=== PATIENT | female | born 1995 | race Caucasian/White ===

== ENCOUNTER 2023-12-15 02:07 | Outpatient (CLI) | payer OTHER, SELFPAY ==
[2023-12-15 16:52] LABS: Panorama Kit Sent via Fed Ex
[2023-12-15 16:58] LABS: Abs Immature Grans 0.03 10^3/uL (0.0-0.06); Absolute Basophil Count 0.03 10^3/uL (0.0-0.2); Absolute Eosinophil Count 0.05 10^3/uL (0.0-0.7); Absolute Lymphocyte Count 2.54 10^3/uL (1.2-3.4); Absolute Monocyte Count 0.41 10^3/uL (0.1-0.8); Absolute Neutrophil Count 6.07 10^3/uL (1.2-6.7); Basophils % 0.3 %; Eosinophils % 0.5 %; HCT 37.5 % (36.0-46.0); HGB 12.7 g/dL (11.2-15.7); Immature Grans % 0.3 %; Lymphocytes % 27.8 %; MCH 32.4 pg (27.0-33.0); MCHC 33.9 % (32.0-36.0); MCV 96 fL (80-95); MPV 8.8 fL (8.0-11.0); Monocytes % 4.5 %; Neutrophils % 66.6 %; Platelet Count 231 10^3/uL (130-400); RBC 3.92 10^6/uL (3.93-5.22); RDW 12.2 % (11.7-14.6); RDW-SD 43.1 fL; WBC 9.13 10^3/uL (4.4-10.8)
[2023-12-16 18:57] LABS: Hepatitis B Surface Ag Negative (Negative)
[2023-12-16 19:25] LABS: Hepatitis C Ab w Rflx HCV PCR Negative (Negative)
[2023-12-16 19:29] LABS: HIV-1/2 Ag & Ab Screen Negative (Negative)
[2023-12-17 11:24] LABS: Varicella IgG Antibody Positive (See Note)
[2023-12-17 11:33] LABS: Rubella IgG Ab (UVM) Positive (See Note)
[2023-12-18 15:17] LABS: Syphilis IgG w/Reflex Nonreactive (Nonreactive)
[2023-12-19 16:20] LABS: Specimen WB Whole Blood
[2023-12-25 13:18] LABS: Result Summary NEGATIVE; Specimen WB Whole Blood
== END 2023-12-15 02:08 | disposition home or self-care (01) ==
LOC: LBO 02:07
PROVIDERS: Visit Provider Advanced Practice Midwife
DX: Z34.91 Encounter for supervision of normal pregnancy, unspecified, first trimester (principal); E84.9 Cystic fibrosis, unspecified
CPT/HCPCS: 36415; 81220; 81222; 81329; 86787; 86803; 86850; 86900; 86901; 87340; 87389; 85025; 86762; 86780; 87086

== ENCOUNTER 2023-12-15 18:13 | Outpatient (REF) | payer SELFPAY ==
--- NOTE | 2023-12-15 16:00 | PAPFT_PTH ---
PATIENT: Janice Fuller LOC: [facility] U#:[id number] AGE/SX: 28/F ROOM: RE12/15/[address]: Latonia Mcgee : 1995 BED: DIS: 12/15/2023 SPEC #: [id number] RECD: 12/15/23 18:34 STATUS: SATISH REQ #: [id number] PASHA: 12/15/23 16:[address]: Latonia Mcgee DEPT: [facility] Cytology RECD BY: Lynn Thomas ENTERED: 12/15/23 18:35 SP TYPE: PAPFT OTHR DR: Unknown,Unknown Tissues: 1 - CX/ENDOCX FOR PAP SMEARS Procedures: PAP THIN PREP/UVM Screening Comments: [id number] (CHLAMYDIA/GC)
[2024-01-05 13:30] LABS: Chlamydia Result Negative (Negative); GC Result Negative (Negative)
== END 2023-12-15 18:14 | disposition home or self-care (01) ==
LOC: LBN 18:13
PROVIDERS: Visit Provider Advanced Practice Midwife
DX: Z11.3 Encounter for screening for infections with a predominantly sexual mode of transmission (principal)
CPT/HCPCS: 87491; 87591; 88142; 87480; 87510; 87660

== ENCOUNTER 2024-01-07 11:48 | Outpatient (REF) | payer OTHER, SELFPAY | END 2024-01-07 11:49 | disposition home or self-care (01) | LOC: LBN 11:48 | PROVIDERS: Visit Provider Advanced Practice Midwife | DX: N89.8 Other specified noninflammatory disorders of vagina (principal) | CPT/HCPCS: 87480; 87510; 87660 ==

== ENCOUNTER 2024-04-14 03:17 | Outpatient (CLI) | payer OTHER, MEDICAID, SELFPAY ==
[2024-04-14 14:47] LABS: HCT 35.2 % (36.0-46.0); HGB 11.9 g/dL (11.2-15.7); MCH 31.7 pg (27.0-33.0); MCHC 33.8 % (32.0-36.0); MCV 94 fL (80-95); MPV 8.9 fL (8.0-11.0); Platelet Count 221 10^3/uL (130-400); RBC 3.75 10^6/uL (3.93-5.22); RDW 13.2 % (11.7-14.6); RDW-SD 45.2 fL; WBC 10.68 10^3/uL (4.4-10.8)
[2024-04-14 15:02] LABS: Glucose,1 Hr (Glucola) 92 mg/dL (80-140)
== END 2024-04-14 03:18 | disposition home or self-care (01) ==
LOC: LBO 03:17
PROVIDERS: Advanced Practice Midwife; Visit Provider Advanced Practice Midwife
DX: O26.893 Other specified pregnancy related conditions, third trimester (principal); Z67.91 Unspecified blood type, Rh negative; Z34.93 Encounter for supervision of normal pregnancy, unspecified, third trimester
CPT/HCPCS: 36415; 82950; 85027; 86850; 90384

== ENCOUNTER 2024-06-08 17:17 | Outpatient (REF) | payer MEDICAID, SELFPAY | END 2024-06-08 17:18 | disposition home or self-care (01) | LOC: LBN 17:17 | PROVIDERS: Visit Provider Advanced Practice Midwife | DX: Z34.93 Encounter for supervision of normal pregnancy, unspecified, third trimester (principal) | CPT/HCPCS: 87081 ==

== ENCOUNTER 2024-06-30 04:07 | Inpatient (IN) | payer MEDICAID, SELFPAY ==
[2024-06-30] VITALS (264 sets, daily range): BP systolic 97–164; BP diastolic 51–87; PULSE 0–190; RESP 16–18; TEMP 36.6–37.1; O2SAT 89–100; BMI 32.8
[2024-06-30] MEDS: MORPHine 10 MG/ML VIAL 15 MG SC (04:17)
--- NOTE | 2024-06-30 04:23 | W.PM.OBHPL1 ---
Date of service: 06/30/24 Time of Service: 04:23 Assessment and Plan Assessment and plan (1) Labor, prolonged latent phase: Status: Acute Assessment and plan: A: 29 yo @ 40+1, latent phase labor, membranes status indeterminate (?ROM per patient, unable to confirm on arrival) GBS neg, Rh neg and received RhoGam, 5P screen negative; category 1 tracing increased risk of SD due to 50lb TWG in primipara, nml glucose screen Maternal fatigue; has been uncomfortable for >24 hrs; poor tolerance of contraction pain P: Discussed options for therapeutic rest with pt, she opts for morphine subQ Pt plans epidural in active labor Will observe through the night for evidence of ROM or progressing labor OB-HPI Labor/Delivery History of Present Illness Reason for Visit: Labor Chief Complaint: Uterine Contractions (Has been feeling uncomfortable since membrane sweep on 06/28, last 24 hrs have been very uncomfortable, unable to sleep but napped during the day yesterday. Increased contraction pain and frequency after 2200.); Suspected Rupture of Membranes , Associated Signs and Symptoms of Suspected ROM: pt reports a gush of vaginal fluid at 2200 and has felt wetness since then.. ES Calculator Estimated Delivery Date Method Current WG Current Estimate 06/30/24 Ultrasound #1 40w 0d Other Estimates 07/05/24 LMP (Certain) 39w 2d History of Present Expected Delivery Route/Plan - CNM FOB/boyfrnd - Sha Bateman (first baby) BB yes to circ Planning on epidural, GBS negative Specific Issues/Plan 1. Genetic testing options - cfDNA low risk male, SMA/CF negative, declines AFP 2. neg 5-Ps. 3. Rh neg, discussed with Janice, 28 wk RhoGam given 04/14/24 4. Bacteria vaginosis 12/14 - treated with metronidazole x 7 days 4a. 01/06 - symptomatic and vaginal pathogen screen repeated + yeast Assessment: History Reviewed & Current Review of Systems Narrative: ROS completed and found to be noncontributory ither than HPI PFSH All Active Problems (Updated 06/30/24 @ 04:48 by Tricia Elliott) Labor, prolonged latent phase (Acute) Rh negative status during (Acute) Vaginal discharge (Acute) (Acute) Medical History Family history of breast cancer Former tobacco use Family History (System 12/17/23 @ 09:09 by Janee Menchaca) Mother Lipoma Paternal Grandfather Colon cancer Maternal Aunt , 60s Breast cancer Maternal Aunt , 60s Breast cancer Nephew Heart defect Social History (System 12/17/23 @ 09:09 by Janee Menchaca) Smoking risk assessment performed?: No History History 1 Para 0 Hx # Term Pregnancies 0 Multiple births 0 Hx # Pregnancies 0 Ectopic pregnancies 0 AB induced 0 Hx Number of Living Children 0 AB spontaneous 0 Meds Allergies and Home Medications Allergies Allergy/AdvReac Type Severity Reaction Status Date / Time No Known Drug Allergies Allergy Unknown Other (See Verified 06/28/24 13:20 Comment) Home Medications ?Medication ?Instructions ?Recorded ?Confirmed ?Type vitamin no.180-ferrous 1 tab PO DAILY #90 tabs 11/03/23 06/28/24 Rx fumarate 27 mg-folic acid 1 mg tablet ( Plus Vitamin-Mineral) Exam Physical Exam Vital Signs Reviewed: Yes Narrative: afebrile, normoensive Constitutional Constitutional: moderate distress and cooperative Comments: moaning and vocalizing with contractions, reports pain localized in lower abdomen Detailed Labor and Delivery Exam Dilation: 2 (exam tolerated poorly by patient, sterile speculum exam for membrane status declined) Effacement (%): 70 station: -3 Cervix position: anterior Consistency: firm RANKIN Score(Cervical Ripeness Score): 5 Amniotic Membrane Status: Other (indeterminate) Pooling: Negative Ferning: Absent Contraction Frequency(min): irregular, q2-5 Contraction Duration(sec): 50-60 Contraction Intensity: Mild/Moderate (per palpation) Fetus A Heart Rate Baseline: 130 Monitor Accelerations: Present Monitor Decelerations: None Variability: Moderate (6-25 BPM) Categories: Category I Est. Weight: 7 lb 14.986 oz Est. Weight: 3600 gm Date of Membrane Rupture: 06/29/24 Time of Membrane Rupture: 22:00 Assessment Note: Membrane status is indeterminate: unable to confirm ROM, initial fern slide is negative, vaginal mucous is bloody after vaginal exam, no visible drainage of amniotic fluid, pt declines SSE. HEENT Exam HEENT Exam: Normal Neck Exam Neck Exam: Normal Chest/Brest/Axilla Exam Chest Exam: Normal Breast Exam Breast Exam: Not Done Respiratory Exam Respiratory Exam: Normal Cardiovascular Exam Cardiovascular Exam: Normal Abdominal Exam Abdominal Exam: Normal (gravid, nontender) Rectal Exam Rectal Exam: Normal Exam Exam: Normal (perineum dry upon presentation) Extremities Exam Extremities Exam: Normal Back/Spine/Pelvis Exam Back Exam: Normal Pelvis Adequate: Yes Skin Exam Skin Exam: Normal Neurological Exam Neurological Exam: Normal Psychiatric Exam Psychiatric Exam: Normal Results Results Group Beta Strep: Negative Blood Type: O- Rubella Status: Immune Varicella Immunity: Immune Risk Assessment Risk for Shoulder Dystocia Historical/Initial OB: NEGATIVE FOR: Pelvic Abnormality, Pre- BMI>30, Previous Shoulder Dystocia or Previous Macrosomia 36 Weeks: POSITIVE FOR: Maternal Weight Gain>40lbs; NEGATIVE FOR: Current Gestational DM or EFW>4500gms 40 Weeks: POSTIVE FOR: Maternal Weight Gain >40lb Increased Risk?: Yes Counseling: d/t wt gain >50 lb, primipara Delivery Plan @ 36wks: Risk for Pre-Eclampsia Daily Dose ASA Indicated: No Date Initiated/Initials: 12/14 Yes, if one or more: NEGATIVE FOR: Hx Pre-E/Gest HTN, Chronic HTN, Multiple Gestation, Pre-gestational DM, Renal Disease, Systemic Lupus or APA Syndrome Yes, if 2 or more: POSITIVE FOR: Nulliparity; NEGATIVE FOR: Age>= 35 yrs, >10yr btwn pregnancies, BMI>30, ethinicty, Mother/Sister w/ Pre-E or Previous IUGR Risk for Post- Hemorrhage Initial: NEGATIVE FOR: Multiple Gestation, Previous PPH, Known Clotting Deficiency, Grand Multiparity or Anticoagulation 36 Weeks: NEGATIVE FOR: Anemia, hgb<10, Low platelets(thrombocytopenia), Gestational HTN or Pre-E, Polyhydraminios or EFW>4500gms 40 Weeks: NEGATIVE FOR: Anemia, hgb<10, Low platelets (thrombocytopenia), Gestation HTN or Pre-E, Polyhydraminios or EFW>4500gms At Risk?: No Counseled re: Active Management: Yes Risks Reviewed Risks Reviewed Upon Admission: Yes
--- NOTE | 2024-06-30 05:26 | W.OBNST ---
Date of service: 06/30/24 Time of Service: 05:30 NST Evaluation Reason for NST Reasons for Nonstress Test: OTHER, SEE COMMENT Reason for NST Other: rule out labor Gestational Age Gestational Age in Weeks and Days: 40 Weeks and 0Days Test and Monitor Explained Test/Monitor Explained: Test Explained, Monitor Explained and Patient Verbalized Understanding Vital Signs Blood Pressure: 125/58 Pulse: 78 Temperature: 208.0 F Urine Results Urine Protein: Negative Urine Ketones: Negative Urine Glucose: Negative Urine Blood: Positive NST Information Date on Monitor: 06/30/24 Time on Monitor: 02:49 Date off Monitor: 06/30/24 Time off Monitor: 03:30 Total Time on Monitor: 41 NST Interventions: PO Hydration NST Evaluation Patient States Movement: Present FHR Baseline: 130 Variability: Moderate 6-25 bpm Accelerations: 15x15 Decelerations: None NST Results: Reactive Note Ultrasound Done: N/A. NST Note Note: Pt to stay for overnight observation, therapeutic rest Re-evaluate membrane and labor status in the morning NST Reviewed and Verified by: Tricia Elliott
--- NOTE | 2024-06-30 11:16 | W.PM.OBNL1 ---
Date of service: 06/30/24 Time of Service: 11:16 Informed Consent Informed Consent: Augmentation of Labor, Regional Anesthesia and Risk,Benefits,Alternatives Discussed Pelvic Exam Dilation: 3 Effacement (%): 90 station: -3 Cervix Position: anterior Consistency: soft Pooling: Positive Nitrazine: Positive Ferning: Present Comments: SSE performed 1100 today, SROM confirmed Contractions Monitor Mode: External Contraction Frequency(min): q5-10 Contraction Duration(sec): 60 Intensity: Mild/Moderate Fetus A Monitor: External (US) Heart Rate Baseline: 130 Variability: Moderate (6-25 BPM) Categories: Category I Accelerations: Present Decelerations: None Amniotic Membrane Status: Ruptured Rupture Method: Spontaneous Amniotic Fluid: Clear Date of Membrane Rupture: 06/29/24 Time of Membrane Rupture: 22:00 Assessment and Plan Assessment and plan (1) PROM (premature rupture of membranes): Status: Acute Assessment and plan: A: SROM confirmed via sterile speculum exam (x13 hrs) Cervical change to 3/90% vtx -3, +pooling, +ferns Category 1 tracing; GBS neg P: Pt to shower and have lunch, status changed to inpt Plan epidural anesthesia and pitocin augmentation this afternoon Will be handing pt care to Stephen Mcgee CNM Objective Temp Pulse Resp BP Pulse Ox 98.3 F 71 16 132/75 96 06/30/24 08:54 06/30/24 08:54 06/30/24 08:54 06/30/24 08:54 06/30/24 04:54 Vital Signs Reviewed: Yes Objective Narrative Objective Narrative: Normotensive, afebrile Pt in good spirits, pleased with cervical progress Agreeable to pitocin augmentation and plans epidural anesthesia Subjective Interval history since last seen: Pt slept well over 6 hours after morphine was given, woke up rested & hungry, ate breakfast without emesis. Reports continued vaginal leakage and sensation of lower abd cramps.
[2024-06-30 11:39] LABS: HCT 37.4 % (36.0-46.0); HGB 12.7 g/dL (11.2-15.7); MCH 31.5 pg (27.0-33.0); MCV 93 fL (80-95); MPV 9.6 fL (8.0-11.0); Platelet Count 203 10^3/uL (130-400); RBC 4.03 10^6/uL (3.93-5.22); RDW 13.6 % (11.7-14.6); WBC 15.04 10^3/uL (4.4-10.8)
[2024-06-30] MEDS: Normal Saline Flush 10 ML SYR IVP (14:39)
[2024-06-30] MEDS: Lactated Ringers 1,000 ML 125 ML IV ×2 (14:45→17:44)
--- NOTE | 2024-06-30 14:50 | ANES.PREOP_ITS ---
General Info Date of Service Date Performed: 06/30/24 Height: 5 ft 8 in Weight: 97.976 kg Body Mass Index (BMI): 32.8 Meds Allergies and Home Medications Allergies Allergy/AdvReac Type Severity Reaction Status Date / Time No Known Drug Allergies Allergy Unknown Other (See Verified 06/28/24 13:20 Comment) Home Medication ?Medication ?Instructions ?Recorded vitamin no.180-ferrous 1 tab PO DAILY #90 tabs 11/03/23 fumarate 27 mg-folic acid 1 mg tablet ( Plus Vitamin-Mineral) Current Visit Medications: Current Medications Generic Name Dose Route Start Last Admin Trade Name Freq PRN Reason Stop Dose Admin Ringer's Solution 1,000 mls @ 125 mls/hr 06/30/24 15:00 IV INFUSION TAZ IV Miscellaneous Supplies 1 each 06/30/24 15:00 Iv Access IV DIRECTED TAZ IV Miscellaneous Supplies 1 each 06/30/24 15:00 Iv Access IV DIRECTED TAZ Sodium Chloride 0 ml 06/30/24 14:47 Normal Saline Flush 10 Ml Syr IVP PRN PRN Sodium Chloride 0 ml 06/30/24 20:00 Normal Saline Flush 10 Ml Syr IVP BID TAZ Sodium Chloride 0 ml 06/30/24 14:47 Normal Saline 10 Ml Vial IJ DIRECTED PRN Sodium Chloride 0 ml 06/30/24 14:49 Normal Saline Flush 10 Ml Syr IVP PRN PRN PFSH Active Problems Active Problems: Problem Status Onset Code PROM (premature rupture of membranes) Acute O42.90 Labor, prolonged latent phase Acute O63.0 Rh negative status during Acute O26.899, Z67.91 Vaginal discharge Acute N89.8 Acute Z34.90 Medical History Medical History Family history of breast cancer Former tobacco use Tobacco Smoking/Tobacco Use Status: Former Tobacco Use Passive smoking exposure: No Alcohol Alcohol Intake: never Substance Use Substance use: Never Substance use type: does not use Prental History History 2 1 Para 0 Hx # Term Pregnancies 0 Multiple births 0 Hx # Pregnancies 0 Ectopic pregnancies 0 AB induced 0 Hx Number of Living Children 0 AB spontaneous 0 Vital Signs and Lab Results Vital Signs Most Recent Vital Signs in EMR: Most Recent Vital Signs Temp Pulse Resp BP Pulse Ox 37.1 C 70 16 127/68 97 06/30/24 14:00 06/30/24 14:49 06/30/24 11:33 06/30/24 14:40 06/30/24 14:49 Lab Results 06/30/24 11:28 Blood Type / Crossmatch: 2 Antibody Screen POSITIVE 06/30/24 Complete Blood Count: 2 White Blood Count 15.04 10^3/uL (4.4-10.8) H 06/30/24 11:28 Red Blood Count 4.03 10^6/uL (3.93-5.22) 06/30/24 11:28 Hemoglobin 12.7 g/dL (11.2-15.7) 06/30/24 11:28 Hematocrit 37.4 % (36.0-46.0) 06/30/24 11:28 Platelet Count 203 10^3/uL (130-400) 06/30/24 11:28 Complete Metabolic Panel: 2 No Data to Display Liver Function Panel: 2 No Data to Display Coagulation Panel: 2 No Data to Display Cardiac Panel: 2 No Data to Display Arterial Blood Gas: 2 No Data to Display Venous Blood Gas: 2 No Data to Display Pancreas Panel: 2 No Data to Display Thyroid Panel: 2 No Data to Display Infectious Disease: 2 No Data to Display Blood Cultures: 2 No Data to Display Toxicology Panel: 2 No Data to Display Panel: 2 No Data to Display Anesthesia Assessment and Plan Anesthesia History Personal History: No History of Anesthesia Complications Family History: No Family History of Anesthesia Complications Exercise Tolerance Exercise Tolerance: Metabolic Equivalents>4 Pertinent Negatives Pertinent Negatives: No Symptoms of GERD, No Major Cardiovascular Symptoms or Complaints and No Major Pulmonary Symptoms or Complaints Cardiac & Pulmonary Exam Cardiac Exam: Normal S1/S2 Heart Sounds Pulmonary Exam: Clear Bilateral Breath Sounds Implantable Cardiac Device Does patient have a Pacemaker or an ICD?: No Airway Exam Known Difficult Airway: No Mallampati Class: 2 Mouth Opening: Normal (> 3cm) Thyromental Distance: Greater than 3 cm Neck Range of Motion: Full ROM Neck Circumference: Normal Teeth Condition: Normal Dentition ASA Classification ASA Score: ASA 2 Emergency Case?: No NPO Status NPO Status: Full Stomach Status Status: Confirmed Anesthesia Plan Resuscitation Status: Full Code Anesthesia Technique: Epidural Anesthesia Airway Planned: Natural Airway Pain Management: Epidural Monitors Used: Standard Monitors
--- NOTE | 2024-06-30 14:50 | W.PM.OBNL1 ---
Date of service: 06/30/24 Time of Service: 14:50 Informed Consent Informed Consent: Augmentation of Labor, Regional Anesthesia and Risk,Benefits,Alternatives Discussed Pelvic Exam Comments: exam deferred per patient preference due to discomfort Contractions Monitor Mode: External Contraction Frequency(min): every 4-5 Contraction Duration(sec): 60 Intensity: Moderate Fetus A Monitor: External (US) Heart Rate Baseline: 130 Presentation: Cephalic Variability: Moderate (6-25 BPM) Categories: Category I FHR Rhythm: Regular Accelerations: 15 X 15 Decelerations: None Amniotic Membrane Status: Ruptured Amniotic Fluid: Clear Date of Membrane Rupture: 06/29/24 Time of Membrane Rupture: 22:00 Assessment and Plan Assessment and plan (1) PROM (premature rupture of membranes): Status: Acute Assessment and plan: Discused risks and benefits of labor augmentation or expectant management. Janice and her partner, Derrek wish to proceed with labor augmentation at this time. (2) Labor, prolonged latent phase: Status: Acute Assessment and plan: Plan to start pitocin augmentation after labor analgesia started and CLEMENTINA hough was paged. Plan reviewed with Dr. Cavazos who agrees. Objective Abnormal lab results 06/30/24 Range/Units 11:28 WBC 15.04 H (4.4-10.8) 10^3/uL Temp Pulse Resp BP Pulse Ox 98.8 F 70 16 127/68 97 06/30/24 14:00 06/30/24 14:49 06/30/24 11:33 06/30/24 14:40 06/30/24 14:49 Laboratory Results WBC 15.04 10^3/uL (4.4-10.8) H 06/30/24 11:28 RBC 4.03 10^6/uL (3.93-5.22) 06/30/24 11:28 Hgb 12.7 g/dL (11.2-15.7) 06/30/24 11:28 Hct 37.4 % (36.0-46.0) 06/30/24 11:28 MCV 93 fL (80-95) 06/30/24 11:28 MCH 31.5 pg (27.0-33.0) 06/30/24 11:28 MCHC 34.0 % (32.0-36.0) 06/30/24 11:28 RDW 13.6 % (11.7-14.6) 06/30/24 11:28 Plt Count 203 10^3/uL (130-400) 06/30/24 11:28 MPV 9.6 fL (8.0-11.0) 06/30/24 11:28 ABO/Rh O Negative 06/30/24 11:28 Antibody Screen POSITIVE 06/30/24 11:28 Antibody Identification Anti-D 06/30/24 11:28 Subjective Patient Reports: No new Complaints Interval history since last seen: Janice slept well with morphine. Her contractions are mild to moderate and less frequent. SROM was confirmed by microscopic exam by Heidi trinh. Janice requested time to eat lunch and shower before proceeding with labor augmentation. She requests epidural analgesia prior to labor augmentation. Results Hemoglobin/Hematocrit: Hgb 12.7 g/dL (11.2-15.7) 06/30/24 11:28 Hct 37.4 % (36.0-46.0) 06/30/24 11:28 Abnormal Lab Findings: Abnormal Labs 06/30/24 11:28 WBC 15.04 H
[2024-06-30] MEDS: FentaNYL/ROPIvacaine 2 mcg/ml and 0.1% 200 ML CADD Cassette EP (15:12)
--- NOTE | 2024-06-30 15:21 | ANES.NEUR_ITS ---
Epidural/Spinal Catheter Date Performed: 06/30/24 Procedure Start: 15:02 Procedure Stop: 15:20 Requesting Provider: Latonia Mcgee Procedure Location: Obstetrics Reason Performed: Labor Epidural Standard Monitors Applied: Blood Pressure, SpO2 and See EMR for corresponding vital signs Patient Position: Sitting Sedation Given (Indicate Dose Given): No Sedation given Patient Mental Status: Awake Sterility: Hand Hygiene, Surgical Cap, Surgical Mask, Sterile Gloves, Sterile Drape/Sheet and Chlorhexidine Procedure Location: L2-L3 Interspace Epidural Needle: Tuohy 18 Gauge Needle Length: 3.5 Inch Needle Approach: Midline Epidural Procedure: Skin Prepped, Sterile Drape Placed, 1% Lidocaine to skin and subcutaneous tissue with 25G needle, Tuohy Needle placed, ALEX to Saline Used, Epidural Catheter Placed, Negative Heme, Negative CSF Flow and Tuohy Needle Removed Catheter Placed?: Catheter Placed Test Dose (Indicate Dose Given): 3ml 1.5% Lidocaine with 1:200K Epinephrine Given and Negative Test Dose Loss of Resistance Depth (cm): 7 Catheter depth at skin (cm): 15 Dressing: Sorbaview Dressing Placed, Mastisol Used and Dressing reinforced with Tape Epidural Pr ovider Bolus (Indicate Dose Given): Total bolus dose given in 3-5 ml divided doses and Total Ropivacaine 0.1% with Fentanyl 2mcg/ml Given from pump. (ml) Dose:: 10mL Additives (Indicate Dose Given ): None Infusion Medication: Medication Infusion Began Medication Infusion: Ropivacaine 0.1% with Fentanyl 2mcg/ml Maintenance Infusion Rate (ml/hour): 10 PCEA Bolus Dose (ml): 5 Block Level: N/A Paresthesia: None Ultrasound: Not Used Number of Attempts (See previous attempts in note section): 1 Procedure Tolerated: No Complications Procedure Outcome: Successful Performed By: Amelia England
[2024-06-30] MEDS: Oxytocin/Normal Saline 30 UNIT/500 ML BAG 2 UNITS IV (16:00)
--- NOTE | 2024-06-30 19:29 | W.PM.OBNL1 ---
Date of service: 06/30/24 Time of Service: 19:29 Informed Consent Informed Consent: Augmentation of Labor, Regional Anesthesia and Risk,Benefits,Alternatives Discussed Pelvic Exam Dilation: 4 Effacement (%): 100 station: -2 Cervix Position: mid Consistency: soft Vaginal Exam Presentation: Cephalic Pooling: Positive (bloody) Comments: Bright blood was noted with exam and a small forebag of amniotic fluid noted with clear blood-tinged fluid leaking. Several quarter sized clots were expelled. Dr Cavazos also examined Janice and several more small clots expelled after rupture of forebag which occurred with her exam. Contractions Monitor Mode: External Contraction Frequency(min): every 2-3 Contraction Duration(sec): 60 Intensity: Strong Fetus A Monitor: External (US) Heart Rate Baseline: 130 Presentation: Cephalic Variability: Moderate (6-25 BPM) Categories: Category I FHR Rhythm: Regular Accelerations: 15 X 15 Decelerations: Variable Recurrence: Episodic Amniotic Membrane Status: Ruptured Amniotic Fluid: Bloody Assessment and Plan Assessment and plan (1) Labor, prolonged latent phase: Status: Acute Assessment and plan: Discussed limited descent and cervical change with Janice. IUPC not indicated at this time due to cervical/uterine bleeding. (2) PROM (premature rupture of membranes): Status: Acute Assessment and plan: Dr Cavazos was consulted and I requested that she assess Janice due to bright bleeding and clots. She performed an exam and discussed causes of vaginal bleeding in labor and possible indications for delivery. Janice's questions were answered. Stat CBC ordered per Dr Cavazos's recommendation. After discussion with Dr. Cavazos, Janice is considering the option of delivery at this time or expectant management and assessment. Objective Abnormal lab results 06/30/24 Range/Units 11:28 WBC 15.04 H (4.4-10.8) 10^3/uL Temp Pulse Resp BP Pulse Ox 98.1 F 82 16 164/76 H 97 06/30/24 19:09 06/30/24 19:29 06/30/24 18:04 06/30/24 18:58 06/30/24 19:29 Laboratory Results WBC 15.04 10^3/uL (4.4-10.8) H 06/30/24 11:28 RBC 4.03 10^6/uL (3.93-5.22) 06/30/24 11:28 Hgb 12.7 g/dL (11.2-15.7) 06/30/24 11:28 Hct 37.4 % (36.0-46.0) 06/30/24 11:28 MCV 93 fL (80-95) 06/30/24 11:28 MCH 31.5 pg (27.0-33.0) 06/30/24 11:28 MCHC 34.0 % (32.0-36.0) 06/30/24 11:28 RDW 13.6 % (11.7-14.6) 06/30/24 11:28 Plt Count 203 10^3/uL (130-400) 06/30/24 11:28 MPV 9.6 fL (8.0-11.0) 06/30/24 11:28 ABO/Rh O Negative 06/30/24 11:28 Antibody Screen POSITIVE 06/30/24 11:28 Antibody Identification Anti-D 06/30/24 11:28 Subjective Patient Reports: No new Complaints Interval history since last seen: Janice has been resting comfortably with epidural. Pitocin is at 8 mu/min. x Results Hemoglobin/Hematocrit: Hgb 12.7 g/dL (11.2-15.7) 06/30/24 11:28 Hct 37.4 % (36.0-46.0) 06/30/24 11:28 Abnormal Lab Findings: Abnormal Labs 06/30/24 11:28 WBC 15.04 H
--- NOTE | 2024-06-30 19:50 | PGE_ITS ---
Date of Service Date of service: 06/30/24 Time of Service: 19:50 Assessment and Plan Assessment and plan (1) 40 weeks gestation of : Status: Acute Assessment and plan: 29-year-old G1, P0 at 40 weeks and 1 day as dated by 8-week ultrasound presented to labor and delivery yesterday with complaints of contractions and a large gush of vaginal fluid at 2200. complicated by Rh- status and 57 pound weight gain in (28-week 1 hour OGTT 92; last ultrasound performed in February at the time of anatomy assessment). Patient was expectantly monitored overnight, and ruptured membranes was confirmed this morning on speculum exam with positive ferning. She dilated to 3/90/-3, and requested an epidural, which was placed without issue. After receiving the epidural, Pitocin was initiated around 1600. I received a page this evening from the on-call matting press tender requesting my assistance with assessment of vaginal bleeding around 1930. The matting press tender reported concerns surrounding an increase in the patient's bleeding with some clots that have her concerned. The patient was assessed at bedside. FHT monitoring has been consistently reassuring and she has had a seemingly adequate contraction pattern for at least a couple hours now. The patient denies any pain, and is found resting comfortably. The matting press tender shows me a pad that had been on the patient for approximately an hour which is noted to have a long, stringy blood clot and some old blood; I would describe as moderate bleeding in the setting of her labor. While performing my SVE, she was noted to have a forebag which incidentally broke during my assessment, and she was noted to have blood-tinged fluid. Following rupture of membranes FHTs remained reassuring, and contraction pattern remained stable. She had no evidence of active bleeding. I had an extensive discussion with the patient regarding the bleeding. We discussed the possible etiologies including but not limited to, trauma from cervical change as well as the potential for concerns surrounding placental abruption. My current concern for placental abruption is relatively low given how thin the patient cervix is (making bleeding from cervical change much more likely), the clinical status of the baby, the nature of the contractions, the amount of bleeding, and the palpation of the maternal abdomen. We discussed the potential for uncertainty and the unlikely but possible risk of catastrophic and immediate changes. I further discussed my growing concerns for her lack of labor progress in the setting of adequate contractions. We discussed the potential need for section in the event of any concerning changes in the heart rate or maternal status; we discussed collecting a CBC to trend her hemoglobin and platelets, baseline abruption labs in an abundance of caution. We will continue to monitor and continue the Pitocin at this time while monitoring the status and maternal status closely. Exam Narrative Exam Narrative: General: Well-nourished female in no immediate distress Pulmonary: No evidence of respiratory distress Abdomen: Gravid, no fundal tenderness, appropriate relaxation appreciated between contractions Extremities: +1 edema noted equally bilaterally SVE: 4-5/100/-1/midline/soft; forbade ruptured incidentally during exam to blood-tinged fluid FHT: Category 1 [place]: Every 2 to 3, Pitocin at 8 MU Objective Last Vital Signs Temp 98.1 F 06/30/24 19:09 Pulse 86 06/30/24 19:49 Resp 16 06/30/24 18:04 BP 120/68 06/30/24 19:30 Pulse Ox 99 06/30/24 19:49 Laboratory Results - last 24 hr 06/30/24 11:28 WBC 15.04 H RBC 4.03 Hgb 12.7 Hct 37.4 MCV 93 MCH 31.5 MCHC 34.0 RDW 13.6 Plt Count 203 MPV 9.6 ABO/Rh O Negative Antibody Screen POSITIVE Antibody Identification Anti-D Time Spent with Patient Time Spent with Patient: 25-34 minutes Time was spent: preparing to see the patient(eg.review tests), obtaining and/or reviewing separately otained hiistory, ordering medications,tests, procedures, referring, communicating with other health early breastfeeding care specialist, indepentently interpreting results, counseling the patient and care coordination
--- NOTE | 2024-06-30 20:01 | W.PM.OBNL1 ---
Date of service: 06/30/24 Time of Service: 16:00 Informed Consent Informed Consent: Augmentation of Labor, Regional Anesthesia and Risk,Benefits,Alternatives Discussed Pelvic Exam Dilation: 4 Effacement (%): 90 station: -2 Cervix Position: mid Consistency: soft Vaginal Exam Presentation: Cephalic Pooling: Positive Comments: bright bleeding noted after cervical exam. Bleeding stopped quickly Contractions Monitor Mode: External Contraction Frequency(min): every 3-4 Contraction Duration(sec): 40-60 Intensity: Moderate/Strong Fetus A Monitor: External (US) Heart Rate Baseline: 130 Presentation: Cephalic Variability: Moderate (6-25 BPM) Categories: Category I Accelerations: 15 X 15 Decelerations: None Amniotic Membrane Status: Ruptured Assessment and Plan Assessment and plan (1) PROM (premature rupture of membranes): Status: Acute Assessment and plan: rest was encouraged and will continue to assess labor progress and and maternal status (2) Labor, prolonged latent phase: Status: Acute Assessment and plan: anticipate . Will plan to reassess when she awakes or in 3 hours Objective Abnormal lab results 06/30/24 Range/Units 11:28 WBC 15.04 H (4.4-10.8) 10^3/uL Temp Pulse Resp BP Pulse Ox 98.1 F 88 16 120/68 100 06/30/24 19:09 06/30/24 19:59 06/30/24 18:04 06/30/24 19:30 06/30/24 19:59 Laboratory Results WBC 15.04 10^3/uL (4.4-10.8) H 06/30/24 11:28 RBC 4.03 10^6/uL (3.93-5.22) 06/30/24 11:28 Hgb 12.7 g/dL (11.2-15.7) 06/30/24 11:28 Hct 37.4 % (36.0-46.0) 06/30/24 11:28 MCV 93 fL (80-95) 06/30/24 11:28 MCH 31.5 pg (27.0-33.0) 06/30/24 11:28 MCHC 34.0 % (32.0-36.0) 06/30/24 11:28 RDW 13.6 % (11.7-14.6) 06/30/24 11:28 Plt Count 203 10^3/uL (130-400) 06/30/24 11:28 MPV 9.6 fL (8.0-11.0) 06/30/24 11:28 ABO/Rh O Negative 06/30/24 11:28 Antibody Screen POSITIVE 06/30/24 11:28 Antibody Identification Anti-D 06/30/24 11:28 Subjective Patient Reports: No new Complaints Interval history since last seen: Jinny is comfortable after epidural and resting Results Hemoglobin/Hematocrit: Hgb 12.7 g/dL (11.2-15.7) 06/30/24 11:28 Hct 37.4 % (36.0-46.0) 06/30/24 11:28 Abnormal Lab Findings: Abnormal Labs 06/30/24 11:28 WBC 15.04 H
[2024-06-30 20:02] LABS: HCT 37.7 % (36.0-46.0); HGB 12.6 g/dL (11.2-15.7); MCH 31.3 pg (27.0-33.0); MCHC 33.4 % (32.0-36.0); MCV 94 fL (80-95); MPV 9.5 fL (8.0-11.0); Platelet Count 200 10^3/uL (130-400); RBC 4.03 10^6/uL (3.93-5.22); RDW 13.5 % (11.7-14.6); RDW-SD 46.5 fL; WBC 13.91 10^3/uL (4.4-10.8)
[2024-06-30 20:57] LABS: INR 0.9 (0.9-1.1); Prothrombin Time 9.5 sec (9.1-11.1)
--- NOTE | 2024-06-30 21:51 | W.PM.OBNL1 ---
Date of service: 06/30/24 Time of Service: 21:51 Informed Consent Informed Consent: Augmentation of Labor, Regional Anesthesia and Risk,Benefits,Alternatives Discussed Pelvic Exam Dilation: 6 Effacement (%): 100 station: -1 Cervix Position: mid Consistency: soft Vaginal Exam Presentation: Cephalic Comments: She continues to leak blood tinged fluid Contractions Monitor Mode: External Contraction Frequency(min): ever 3 min Contraction Duration(sec): 60 Intensity: Strong Fetus A Monitor: External (US) Heart Rate Baseline: 140 Presentation: Cephalic Variability: Moderate (6-25 BPM) Categories: Category I FHR Rhythm: Regular Accelerations: 15 X 15 Decelerations: Variable Recurrence: Intermittent Assessment and Plan Assessment and plan (1) Labor, prolonged latent phase: Status: Acute Assessment and plan: Rest encouraged and 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 Continue to assess labor pattern. (2) PROM (premature rupture of membranes): Status: Acute Assessment and plan: Temps hourly and anticipate Objective Abnormal lab results 06/30/24 06/30/24 Range/Units 11:28 19:55 WBC 15.04 H 13.91 H (4.4-10.8) 10^3/uL Temp Pulse Resp BP Pulse Ox 98.4 F 83 16 119/60 99 06/30/24 20:24 06/30/24 21:50 06/30/24 18:04 06/30/24 21:29 06/30/24 21:50 Laboratory Results WBC Cancelled 06/30/24 Unknown RBC Cancelled 06/30/24 Unknown Hgb Cancelled 06/30/24 Unknown Hct Cancelled 06/30/24 Unknown MCV Cancelled 06/30/24 Unknown MCH Cancelled 06/30/24 Unknown MCHC Cancelled 06/30/24 Unknown RDW Cancelled 06/30/24 Unknown Plt Count Cancelled 06/30/24 Unknown MPV Cancelled 06/30/24 Unknown PT 9.5 sec (9.1-11.1) 06/30/24 20:30 INR 0.9 (0.9-1.1) 06/30/24 20:30 APTT 28.0 sec (20.6-30.2) 06/30/24 20:30 ABO/Rh O Negative 06/30/24 11:28 Antibody Screen POSITIVE 06/30/24 11:28 Antibody Identification Anti-D 06/30/24 11:28 Subjective Patient Reports: New Complaints Interval history since last seen: Janice has been feeling more pressure and discomfort. Temp 37.1. CBC WNL and coag studies pending Results Hemoglobin/Hematocrit: Hgb Cancelled 06/30/24 Unknown Hct Cancelled 06/30/24 Unknown Abnormal Lab Findings: Abnormal Labs 06/30/24 06/30/24 11:28 19:55 WBC 15.04 H 13.91 H
[2024-06-30] MEDS: Penicillin G POT. 5,000,000 UNITS in Normal Saline 100 ML 200 UNITS IVPB (23:22)
[2024-07-01] VITALS (87 sets, daily range): BP systolic 112–157; BP diastolic 61–86; PULSE 62–108; RESP 16–18; TEMP 36.6–37.5; O2SAT 95–100
--- NOTE | 2024-07-01 01:41 | PGE_ITS ---
Date of service: 07/01/24 Time of Service: 01:41 Informed Consent Informed Consent: Augmentation of Labor, Regional Anesthesia and Risk,Benefits,Alternatives Discussed Pelvic Exam Dilation: 9 Effacement (%): 100 station: -1 (cervical edema noted) Cervix Position: mid Consistency: soft Vaginal Exam Presentation: Cephalic Comments: scant blood tinged fluid Contractions Monitor Mode: Internal Contraction Frequency(min): every 2 minutes Contraction Duration(sec): 60 IUPC resting tone (mmHg): 30 IUPC peak pressure (mmHg): 50 IUPC [place] units: 160 Fetus A Monitor: External (US) Heart Rate Baseline: 140 Presentation: Cephalic Variability: Moderate (6-25 BPM) Categories: Category I Accelerations: 15 X 15 Decelerations: Variable Recurrence: Intermittent Assessment and Plan Assessment and plan (1) Labor, prolonged latent phase: Status: Acute Assessment and plan: Janice was positioned in high fowlers for comfort and has resumed using EPIC RADIANT ANALYST. Will reasess for progress in labor in 2 hours and continue to monitor labor pattern. Anticipate (2) PROM (premature rupture of membranes): Status: Acute Assessment and plan: Hourly temps and continue to assess. Objective Abnormal lab results 06/30/24 06/30/24 Range/Units 11:28 19:55 WBC 15.04 H 13.91 H (4.4-10.8) 10^3/uL Temp Pulse Resp BP Pulse Ox 98.8 F 80 16 136/79 98 07/01/24 00:10 07/01/24 01:40 06/30/24 18:04 07/01/24 01:39 07/01/24 01:40 Laboratory Results WBC Cancelled 06/30/24 Unknown RBC Cancelled 06/30/24 Unknown Hgb Cancelled 06/30/24 Unknown Hct Cancelled 06/30/24 Unknown MCV Cancelled 06/30/24 Unknown MCH Cancelled 06/30/24 Unknown MCHC Cancelled 06/30/24 Unknown RDW Cancelled 06/30/24 Unknown Plt Count Cancelled 06/30/24 Unknown MPV Cancelled 06/30/24 Unknown PT 9.5 sec (9.1-11.1) 06/30/24 20:30 INR 0.9 (0.9-1.1) 06/30/24 20:30 APTT 28.0 sec (20.6-30.2) 06/30/24 20:30 ABO/Rh O Negative 06/30/24 11:28 Antibody Screen POSITIVE 06/30/24 11:28 Antibody Identification Anti-D 06/30/24 11:28 Subjective Patient Reports: No new Complaints Interval history since last seen: Janice rested and took a nap on her left side. She has been using EPIC RADIANT ANALYST for pain relief and she awoke with pain and pressure. Penecillin was started on Dr Cavazos's recommendation. She is in house. Afebrile Results Hemoglobin/Hematocrit: Hgb Cancelled 06/30/24 Unknown Hct Cancelled 06/30/24 Unknown Abnormal Lab Findings: Abnormal Labs 06/30/24 06/30/24 11:28 19:55 WBC 15.04 H 13.91 H
[2024-07-01] MEDS: FentaNYL/ROPIvacaine 2 mcg/ml and 0.1% 200 ML CADD Cassette EP (03:30)
[2024-07-01] MEDS: Penicillin G POT. 3,000,000 UNITS in Normal Saline 50 ML 100 UNITS IVPB (03:30)
--- NOTE | 2024-07-01 05:40 | PGE_ITS ---
Date of service: 07/01/24 Time of Service: 05:40 Informed Consent Informed Consent: Augmentation of Labor, Regional Anesthesia and Risk,Benefits,Alternatives Discussed Pelvic Exam Dilation: 9 Effacement (%): 10 station: 0 Cervix Position: mid Consistency: soft Vaginal Exam Presentation: Cephalic Comments: Cervical edema and caput noted with no descent since previous exam. Contractions Monitor Mode: Internal Contraction Frequency(min): every 2-3 Contraction Duration(sec): 60 IUPC resting tone (mmHg): 25 IUPC peak pressure (mmHg): 60 IUPC [place] units: 140 Fetus A Monitor: External (US) Heart Rate Baseline: 150 Presentation: Cephalic Variability: Moderate (6-25 BPM) Categories: Category I FHR Rhythm: Regular Accelerations: 15 X 15 Decelerations: Early (intermittent) Recurrence: Intermittent Assessment and Plan Assessment and plan (1) Failure to progress in first stage of labor: Status: Acute Assessment and plan: I discussed lack of decent and dilation with Janice. Indications for were discussed. Janice and snehal are in agreement. Dr Cavazos also discussed delivery and that is planned at this time. Objective Abnormal lab results 06/30/24 06/30/24 Range/Units 11:28 19:55 WBC 15.04 H 13.91 H (4.4-10.8) 10^3/uL Temp Pulse Resp BP Pulse Ox 98.6 F 99 H 18 131/67 99 07/01/24 03:08 07/01/24 03:08 07/01/24 01:53 07/01/24 03:08 07/01/24 02:25 Laboratory Results WBC Cancelled 06/30/24 Unknown RBC Cancelled 06/30/24 Unknown Hgb Cancelled 06/30/24 Unknown Hct Cancelled 06/30/24 Unknown MCV Cancelled 06/30/24 Unknown MCH Cancelled 06/30/24 Unknown MCHC Cancelled 06/30/24 Unknown RDW Cancelled 06/30/24 Unknown Plt Count Cancelled 06/30/24 Unknown MPV Cancelled 06/30/24 Unknown PT 9.5 sec (9.1-11.1) 06/30/24 20:30 INR 0.9 (0.9-1.1) 06/30/24 20:30 APTT 28.0 sec (20.6-30.2) 06/30/24 20:30 ABO/Rh O Negative 06/30/24 11:28 Antibody Screen POSITIVE 06/30/24 11:28 Antibody Identification Anti-D 06/30/24 11:28 Subjective Patient Reports: No new Complaints Interval history since last seen: Janice has tried various positions to facilitate delivery. 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
--- NOTE | 2024-07-01 06:02 | W.PM.PROGNOT ---
Date of Service Date of service: 07/01/24 Time of Service: 06:02 Assessment and Plan Assessment and plan (1) Arrest of descent, delivered, current hospitalization: Status: Acute Assessment and plan: I received a phone call this morning from the employment and claims aide. Patient has reportedly been at 9 cm for the last 3 hours with no change in descent or dilation; she notes swelling of the cervix at this time. She reports the head at 0 station with caput. FHT category 1. Contractions are regular; IUPC had been placed approximately 3 hours ago. She verbalizes concern that this baby will need to come out by section. Patient was seen at bedside; she is found to be in good spirits. She seems aware and at peace with the idea of pursuing section. We discussed that a section will involve an incision on her lower belly. We discussed that there are risks associated with section; these include, but are not limited to, bleeding, infection, blood clots to the legs into the lungs, as well as damage to surrounding tissues (which again includes, but is not limited to, the bowel, bladder, major nerves and vessels, uterus, fallopian tubes, ovaries, ureters, and all other major surrounding structures). We discussed the risks associated with anesthesia including potential for spinal headache, as well as unforeseen complications. She is accepting of blood products in the event that they are necessary. Clinical status is overall reassuring. Consented for section to be done this morning for arrest of descent. Of note, patient has been on antibiotics since 24 hours status post rupture. She is afebrile and I am unaware of any evidence of potential chorioamnionitis. Exam Narrative Exam Narrative: General: Well-nourished female in no immediate distress Pulmonary: No evidence of respiratory distress Abdomen: Gravid, nontender; fundus palpated up to sternum. No evidence of abdominal scars or tattoos Extremities: +1 edema noted equally bilaterally Psych: Appropriate, pleasant Objective Last Vital Signs Temp 98.6 F 07/01/24 03:08 Pulse 99 H 07/01/24 03:08 Resp 18 07/01/24 01:53 BP 131/67 07/01/24 03:08 Pulse Ox 99 07/01/24 02:25 Laboratory Results - last 24 hr 06/30/24 06/30/24 06/30/24 11:28 19:55 20:30 WBC 15.04 H 13.91 H RBC 4.03 4.03 Hgb 12.7 12.6 Hct 37.4 37.7 MCV 93 94 MCH 31.5 31.3 MCHC 34.0 33.4 RDW 13.6 13.5 Plt Count 203 200 MPV 9.6 9.5 PT 9.5 INR 0.9 APTT 28.0 ABO/Rh O Negative Antibody Screen POSITIVE Antibody Identification Anti-D 06/30/24 Unknown WBC Cancelled RBC Cancelled Hgb Cancelled Hct Cancelled MCV Cancelled MCH Cancelled MCHC Cancelled RDW Cancelled Plt Count Cancelled MPV Cancelled PT INR APTT ABO/Rh Antibody Screen Antibody Identification Time Spent with Patient Time Spent with Patient: 25-34 minutes Time was spent: preparing to see the patient(eg.review tests), obtaining and/or reviewing separately otained hiistory, ordering medications,tests, procedures, referring, communicating with other health healthcare facility administrator, indepentently interpreting results, counseling the patient and care coordination
[2024-07-01] MEDS: Lactated Ringers 1,000 ML 125 ML IV (06:43)
[2024-07-01] MEDS: AZITHROMYCIN 500 MG in Normal Saline 250 ML 250 MG IVPB (06:44)
[2024-07-01] MEDS: ceFAZolin 2 GM/50 ML BAG IVPB (07:06)
[2024-07-01] MEDS: Methylergonovine 0.2 MG/ML VIAL (07:40)
[2024-07-01] MEDS: Bupivacaine 0.25% Pres-Free 30 ML VIAL (08:11)
--- NOTE | 2024-07-01 08:24 | PDOC.OPNB_ITS ---
Date of service: 07/01/24 Time of Service: 09:45 Operative Note Operative Note Delivery Method: Unscheduled STAT: No DATE OF PROCEDURE: 07/01/24 PRE-OP DIAGNOSES: Arrest of descent POST-OP DIAGNOSES: same Meconium stained fluid PROCEDURE: Primary low transverse section SURGEON: Karely Cavazos Assisting Surgeon: Marianela Kraft Anesthesia: epidural Estimated blood loss (mL): 600 Pathology: other (placenta) Patient was transported to: floor Patient's condition: stable Indications: 29-year-old at 40 weeks and 1 days estimate of an 8-week ultrasound was undergoing labor induction for rupture of membranes. Her was complicated by Rh- status and 57 pound weight gain over the course of her . She was induced and augmented with Pitocin and received an epidural. She ultimately reached 9 cm; however, she was unable to progress beyond 0 station or 9 cm of dilation for 3 hours despite adequate contractions. Arrest present was diagnosed the patient was counseled on the utility of section. Patient was ultimately consented for section with administration of blood products as needed. Findings: Unremarkable, general abdominal and pelvic anatomy. Labored lower uterine segment. Meconium stained fluid. Viable male in cephalic presentation. No nuchal cords. Procedure Description: Patient was taken to the OR with IV fluids running.? She received 2 grams of Ancef and 500 mg Azithromycin for prophylaxis prior to heading to the OR. Her epidural was bolused for anesthesia, and the patient was positioned into supine positioning with her arms abducted at her sides.? The vagina was prepped with Betadine.? A fox catheter was already present. The abdomen was prepped with Chlorohexedine and allowed to dry for three minutes.? The patient was then bishnu ped in the usual, sterile fashion; however, the initial drape utilized was a general surgery drape, and it did not have the appropriate pockets or coverage. Therefore, the drape was disgarded, the abdomen was re-prepped with Chlorohexidine, and the surgeon regowned.? The abdomen was marked with the intended pfannestiel site. A timeout was performed; the patient and procedure were identified.? Testing of the levels of anesthesia was found to be adequate.?? A Pfannenstiel incision was created with scalpel and carried down to the level of the fascia with bovie cautery.? The fascia was incised, and the incision was carried laterally with curved kulkarni scissors. The anterior leaf of fascia was then tented up with kocker claps, and the underlying rectus muscle was dissected off with a combination of blunt and sharp dissection.? The same was done for the inferior leaf.? The midline of the rectus was identified and bluntly dissected revealing the underlying peritoneum.? The peritoneum was tented up with stats and incised with metzenbaum scissors after assuring no underlying bowel.? A large Sergei retractor was placed.? A bladder flap was created using Metzenbaums and Russians.? A low transverse incision was made using a fresh #10 blade, and the incision was extended using blunt traction.? The fluid was noted to be meconium stained. The fetus was presenting as a vertex and low in the pelvis. The head was brought to the level of the hysterotomy with careful attention to avoid using the incision as a fulcrum.? The rest of the body followed easily with gentle fundal pressure from the assistant county attorney. The cord was clamped twice and cut and the baby transferred to the warmer, awaiting the pediatric staff.? Pitocin was initiated.? A segment of cord was obtained and set aside for gases, and cord blood was then obtained. The placenta was then delivered with assistance and fundal massage. The uterus was explored to ensure all tissue was cleared. The uterus was then exteriorized for better visualization and wrapped in a moistened lap.? Penningtons were used to grasp the lower uterine segment, and the uterine incision was closed with a running locked layer of 0 Vicryl.? A second layer of 0 Vicryl imbricating stitch was used to secure the hysterotomy.? Of note, there was an extension of the incision towards the cervix along the left apex, which was addressed by incorporating it into the closure. A small hematoma was also noted along the right apex, but was easily controlled with a [id number] stitch. ?Irrigation was performed, and good hemostasis was appreciated. Careful inspection of the rectus muscle appreciated good hemostasis.? The right apex of the fascia was secured with a kocker clamp, and the fascia was then closed with a running 0-vicryl.? Careful inspection of the subcuticular tissues appreciated good hemostasis, and this layer was closed with a running 3-0 vicryl.? 20 cc's of 0.25% Marcaine was injected into the subcuticular tissues, and hemostasis was again confirmed.? The skin was reapproximated with a 4-0 vicryl subcuticular stitch.? The patient tolerated the procedure well.? The incision was cleaned and covered with a telfa sheet, ABD pad, and medipore tape.? She was then taken to the PACU in good condition.
[2024-07-01] MEDS: MORPHine 2 MG/ML SYR IVP (09:02)
[2024-07-01] MEDS: ACETAMINOPHEN 1,000 MG/100 ML BAG 400 MG IVPB (09:08)
[2024-07-01] MEDS: Gabapentin 300 MG CAP PO ×3 (10:00→21:04)
[2024-07-01] MEDS: oxyCODONE 5 MG TAB PO ×2 (10:03→13:58)
[2024-07-01] MEDS: Ketorolac 30 MG/ML VIAL 15 MG IVP ×2 (13:55→21:04)
[2024-07-01] MEDS: Acetaminophen 325 MG TAB 650 MG PO ×2 (15:01→21:04)
--- NOTE | 2024-07-01 15:14 | W.ANESPOSTOP ---
Postoperative Evaluation Date, Time and Location Date Performed: 07/01/24 Time Performed: 15:15 Patient Location: Obstetrics Vital Signs Most Recent Imported Vital Signs: Most Recent Vital Signs Temp Pulse Resp BP Pulse Ox 36.6 C 71 16 138/78 99 07/01/24 13:13 07/01/24 13:13 07/01/24 13:13 07/01/24 13:13 07/01/24 13:13 Pain Score Most Recent Pain Score: Most Recent Pain Score Pain Level [Bilateral Abdomen] 3 07/01/24 13:13 Pain Level 6 07/01/24 10:03 Assessment Mental Status: Awake (Alert & Oriented to Patient Baseline) Airway and Respiratory Function: Patent airway with normal (patient baseline) respiratory exam Cardiovascular Function: Hemodynamically Stable Hydration Status: Adequately Hydrated Nausea & Vomiting: No Nausea or Vomiting Pain: Pain is tolerable per patient Peripheral Nerve Block: Patient did not receive a nerve block Teaching Patient Teaching: Discussed Safe Use of Pain Medication Given Recent Anesthesia Postoperative Comments:: Resting comfortably in bed on exam. No residual effects from epidural. Epidural site is clean, dry, and intact following removal from earlier this morning. No acute complaints at this time
[2024-07-01 18:40] LABS: Fibrinogen 580 mg/dL (171-384)
[2024-07-02 00:35] VITALS: BP 121/74; PULSE 74; RESP 17; TEMP 36.8; O2SAT 99
[2024-07-02] MEDS: Ketorolac 30 MG/ML VIAL 15 MG IVP (02:33)
[2024-07-02] MEDS: Acetaminophen 325 MG TAB 650 MG PO ×4 (02:34→21:27)
[2024-07-02 06:44] LABS: Abs Immature Grans 0.09 10^3/uL (0.0-0.06); Absolute Basophil Count 0.02 10^3/uL (0.0-0.2); Absolute Eosinophil Count 0.06 10^3/uL (0.0-0.7); Absolute Lymphocyte Count 2.67 10^3/uL (1.2-3.4); Absolute Monocyte Count 0.93 10^3/uL (0.1-0.8); Absolute Neutrophil Count 12.01 10^3/uL (1.2-6.7); Basophils % 0.1 %; Eosinophils % 0.4 %; HCT 28.3 % (36.0-46.0); HGB 9.6 g/dL (11.2-15.7); Immature Grans % 0.6 %; Lymphocytes % 16.9 %; MCH 31.9 pg (27.0-33.0); MCHC 33.9 % (32.0-36.0); MCV 94 fL (80-95); MPV 9.8 fL (8.0-11.0); Monocytes % 5.9 %; Neutrophils % 76.1 %; Platelet Count 172 10^3/uL (130-400); RBC 3.01 10^6/uL (3.93-5.22); RDW 13.6 % (11.7-14.6); RDW-SD 47.6 fL; WBC 15.78 10^3/uL (4.4-10.8)
--- NOTE | 2024-07-02 07:11 | OBVDS_ITS ---
Date of service: 07/02/24 Time of Service: 07:12 OB Labor/ Delivery Information Baby A Delivery Note: I was awoken from the collar by the warehouse traffic supervisor just before 6 AM expressing concerns for the delivery pattern of this patient. She reported that the patient had un dergone spontaneous rupture of membranes around 2 AM; shortly thereafter they attempted to get an epidural but this was delayed due to a glitch in the notification system. By the time the anesthesiologist was able to arrive, the patient was already complete. They had attempted intrathecal, but he was unable to do this successfully. The decision was made to proceed with delivery to resolve her discomfort. Per the warehouse traffic supervisor, the patient had been pushing for a couple hours and seemed to be stalling; there was concern that the patient may need a . I was also informed that the heart tones were a persistent category 2 with deep and prolonged variables. On my way to the patient's room, I noted the concerning strep. Given the difficulties with contacting anesthesia earlier in the evening and the concerns surrounding the pager system, I instructed the house nurse, who was on the floor, to go ahead and call in the OR team for possible stat . When I entered the room of the patient, I found her well-controlled and continuing to attempt to push. She expressed compulsion to push with her contractions. And I have a IFSL was already in place. MARY appreciated complete +2 station with some caput. We attempted to flip her onto all fours and have her pushing, but this did not seem to help. She was placed back onto her back in a dorsolithotomy position with her legs supported by staff, and I assessed her pushing efforts in a traditional position. As she pushed, I could just see the scalp, and we discussed consideration of a vacuum-assisted vaginal delivery. We discussed them vacuum-assisted vaginal delivery comes with several risks including, but not limited to, bleeding on the scalp and brain, hematomas, trauma to the tissues and trauma to maternal tissues. We discussed that if vacuum fails we would need to proceed with section. Patient was consented for vacuum assisted vaginal delivery. The IFSL was removed, and given that the patient did not have an epidural and has been pushing. She had been emptying her bladder throughout the process. A Kiwi was carefully placed along what palpated as the most likely flexion point of the scalp. When the mother indicated a need to push, with Kiwi pressure was increased to the green zone, and her pushing effort was facilitated. This made considerable progress in the descent of the scalp; however, as the head approached +3 station, a pop- off occurred. Once more, the scalp was palpated and the vacuum was again carefully placed along the flexion point, and her next pushing effort was again facilitated with the pressure increased to the middle of the green zone, and again she made considerable progress with more of the head being exposed between the labia. A second pop-off occurred. We attempted vacuum assistance 1 more additional time in a similar fashion, and at this point, the baby was staying at +3 station. However, 1 more pop-off occurred. I informed the mother I was going to attempt an episiotomy; we discussed that this could cause additional tearing and bleeding. She was consented for episiotomy. 1% lidocaine without epi was injected along the LML line, and with her next pushing effort, and LML was cut. heart tones were noted to be in the 160s, and with 1 more additional, long maternal push, the head was delivered in [place]. A tight nuchal cord was appreciated. I was unable to reduce it, but it was mobile enough to facilitate delivery through. The warehouse traffic supervisor assisted with deflecting the umbilical cord along the shoulder and the rest of the body delivered in a traditional fashion without issue. Though, of note, the mother was in [place] positioning. The baby was noted to be immediately vigorous and was placed on the maternal abdomen. 1 minute of delayed cord clamping was observed, and the cord was double clamped and cut by the father the baby under the guidance of the physician. A segment of cord was collected and set aside for cord gases, and cord blood was subsequently collected. The baby was placed on the maternal abdomen given reassuring clinical presentation. Upon arrival of the sheepskin pickler, the was examined by the sheepskin pickler.The warehouse traffic supervisor collected Cord gases from the collected segment while I began assessing for repairs. 4th degree extension of the LML was appreciated. Bleeding was minimal. 1% lidocaine was injected into the tissues requiring repair. The rectal mucosa was first repaired with a 4-0 Vicryl. Next, the rectal sphincter was reapproximated using 2-0 Vicryl in an end-to-end fashion. Next, the remaining second-degree perineal laceration was repaired with 2-0 Vicryl Rapide in a traditional fashion. The patient tolerated the repair well. At the conclusion of the repair, good hemostasis was appreciated. Crede revealed good hemostasis. All instrumentation counts were correct. Providers Doctor: Karely Cavazos Fur Finisher: Alex Tse Nurse: Ifeoma Cárednas Labor/Delivery Information Number of Babies in Womb: 1 Steroids Given: None Reason Steroids Not Administered: N/A Group Beta Strep: Negative Antibiotics Administered: Yes Number of Doses of Antibiotics: 3 Rubella Status: Immune Blood Type: O- Varicella Immunity: Immune Medication in Delivery: TXA, Methergine Maternal Complications: Prolonged Second Stage(>2hrs) Shoulder Dystocia: No Stages of Labor Onset of Labor Date: 06/30/24 Onset of Labor Time: 10:00 ROM Baby A: 07/01/24 ROM Baby A: 07:37 ROM Total Time- Baby A: [id number] Infant Delivery Date-Baby A: 07/01/24 Infant Delivery Time-Baby A: 07:38 Placenta Delivery Date-Baby A: 07/01/24 Placenta Delivery Time-Baby A: 07:40 Labor-Stage 3 Duration: 2 minutes Total Length of Labor-Baby A: 21 hours and 38 minutes Placenta Cultured: Yes Placenta Status: Delivered Baby A Gender: Male Gestational Status: Term (39-41.6 wks) Gestational Age in Weeks/Days: 40 Weeks and 1 Days weight: 0.134 oz Length-Baby A: 21 in Head Circumference-Baby A: 13.78 in Score-1 Minute Interval(Baby A) Heart Rate-1 minute: 100 BPM or Greater Respiratory Effort- 1 minute: Spontaneous/Strong Cry Muscle Tone-1 minute: Active Movement Reflex Response-1 minute: Minimal Response Color-1 minute: Bluish Hands or Feet Total Score-1 minute: 8 Score-5 Minute Interval(Baby A) Heart Rate- 5 minute: 100 BPM or Greater Respiratory Effort-5 minute: Spontaneous/Strong Cry Muscle Tone-5 minute: Active Movement Reflex Response-5 minute: Prompt Response Color-5 minute: Bluish Hands or Feet Total Score- 5 minute: 9
--- NOTE | 2024-07-02 07:13 | OBPPV_ITS ---
Date of service: 07/02/24 Time of Service: 07:14 Assessment and Plan Assessment and plan (1) Status post primary low transverse section: Status: Acute Assessment and plan: Patient seen and examined this morning. Doing well. Hemoglobin stable at 9.6. Vital signs are stable. Will discontinue Sanchez catheter, ambulate, pneumatic compression stockings when at rest. Incentive spirometer. Subjective Subjective Interval history: Patient seen this morning. Overall doing well. Pain is well-controlled. Vital signs are stable. All of her questions were answered this morning she is breast-feeding. Patient's Mood: Appropriate [place] baby status: Doing well, Nursing well and Strong Bonding Observed feeding status: Exclusively breast feeding Exam Physical Exam Vital signs: Temp Pulse Resp BP Pulse Ox 99.5 F 80 16 113/72 99 07/01/24 17:35 07/01/24 17:35 07/01/24 17:35 07/01/24 17:35 07/01/24 17:35 Vital Signs Reviewed: Yes Notable Details: Repeat vitals, afebrile, stable. Constitutional Constitutional: no acute distress HEENT Exam HEENT Exam: Normal Neck Exam Neck Exam: Normal Respiratory Exam Respiratory Exam: Normal Cardiovascular Exam Cardiovascular Exam: Normal Abdominal Exam Abdomen: Tender Fundal Exam Fundus: Below Umbilicus and Firm Results Hemoglobin/Hematocrit: Hgb 9.6 g/dL (11.2-15.7) L D 07/02/24 05:58 Hct 28.3 % (36.0-46.0) L 07/02/24 05:58 Abnormal Lab Findings: Abnormal Labs 06/30/24 06/30/24 07/02/24 11:28 19:55 05:58 WBC 15.04 H 13.91 H 15.78 H RBC 3.01 L Hgb 9.6 L D Hct 28.3 L Absolute Neutrophils 12.01 H Absolute Monocytes 0.93 H
[2024-07-02 08:00] VITALS: BP 114/73; PULSE 75; RESP 16; TEMP 36.5; O2SAT 98
[2024-07-02] MEDS: Gabapentin 300 MG CAP PO ×3 (08:48→21:27)
[2024-07-02] MEDS: Ibuprofen 100 MG/5 ML CUP 600 MG PO ×2 (08:49→15:08)
[2024-07-02 18:04] VITALS: BP 120/76; PULSE 76; RESP 16; TEMP 36.8
[2024-07-02 20:28] VITALS: BP 117/74; PULSE 89; RESP 16; TEMP 36.6; O2SAT 97
[2024-07-03 00:15] VITALS: BP 119/52; PULSE 82; RESP 18; TEMP 36.7; O2SAT 98
[2024-07-03] MEDS: Ibuprofen 100 MG/5 ML CUP 600 MG PO ×2 (03:32→08:45)
[2024-07-03 03:35] VITALS: BP 118/77; PULSE 83; RESP 17; TEMP 36.5; O2SAT 100
[2024-07-03] MEDS: Acetaminophen 325 MG TAB 650 MG PO (08:46)
[2024-07-03] MEDS: Gabapentin 300 MG CAP PO (08:46)
[2024-07-03] MEDS: Docusate Sodium 100 MG CAP PO (08:51)
[2024-07-03 10:00] VITALS: BP 120/71; PULSE 72; RESP 16; TEMP 36.6
--- NOTE | 2024-07-03 10:21 | W.PM.OBPNV1 ---
Date of service: 07/03/24 Time of Service: 10:21 Assessment and Plan Assessment and plan (1) Status post primary low transverse section: Status: Acute Assessment and plan: Postop day #2 status post primary low-transverse . Doing well. Ambulating. Pain is well-controlled. Tolerating regular diet and oral pain medication. Will be discharged home today with follow-up in 1, 2, 6 weeks. All questions answered. Subjective Subjective Interval history: Patient seen and examined this morning. Doing well. Pain is well-controlled. Her biggest concern is that she has not yet had a normal regular bowel movement. We discussed strategies for hydration, fluids, fiber, Colace. Prescriptions will be sent to the pharmacy. She is hopeful for discharge today and I have no reason to think otherwise. Patient's Mood: Appropriate [place] baby status: Doing well, Nursing well and Strong Bonding Observed Exam Physical Exam Vital signs: Temp Pulse Resp BP Pulse Ox 97.7 F 83 17 118/77 100 07/03/24 03:35 07/03/24 03:35 07/03/24 03:35 07/03/24 03:35 07/03/24 03:35 Vital Signs Reviewed: Yes Constitutional Constitutional: no acute distress Neck Exam Neck Exam: Normal Respiratory Exam Respiratory Exam: Normal Cardiovascular Exam Cardiovascular Exam: Normal Abdominal Exam Abdomen: Tender Comments: Incision dressed with Mepilex Fundal Exam Fundus: Below Umbilicus and Firm Extremities Exam Extremity Exam: Normal and Edema (1+ bilateral); negative Calf Tenderness Neurological Exam Neurological Exam: Normal Psychiatric Exam Psychiatric Exam: Normal Results Hemoglobin/Hematocrit: Hgb 9.6 g/dL (11.2-15.7) L D 07/02/24 05:58 Hct 28.3 % (36.0-46.0) L 07/02/24 05:58 Abnormal Lab Findings: Abnormal Labs 06/30/24 06/30/24 06/30/24 11:28 19:55 20:30 WBC 15.04 H 13.91 H RBC Hgb Hct Absolute Neutrophils Absolute Monocytes Fibrinogen 580 H 07/02/24 05:58 WBC 15.78 H RBC 3.01 L Hgb 9.6 L D Hct 28.3 L Absolute Neutrophils 12.01 H Absolute Monocytes 0.93 H Fibrinogen
--- NOTE | 2024-07-03 10:29 | W.PM.OBDISCH ---
Date of service: 07/03/24 Time of Service: 10:29 DS: Diagnosis Discharge Diagnosis (1) Status post primary low transverse section: Status: Acute Asessment and Plan: Postoperative and day #2 status post primary low-transverse section for labor arrest with arrest of dilation at 9 cm and no descent beyond 0 station. Uncomplicated postoperative course. Discharged home postoperative day #2 ambulating, tolerating regular diet and oral pain medication with stable vital signs. Discharge Plan Disposition Patient Disposition: Home Condition: Good Discharge Details Reason For Visit: Labor Admit Date/Time: 06/30/24 04:07 Admit Provider: Tricia Elliott Attending Provider: Tricia Elliott Hospital Course Hospital Course: Patient is a 29-year-old female who presented at 40 weeks and 1 day with probable rupture of membranes. She had a slowly progressive labor course and received an epidural for pain control. She slowly progressed to the point that she was approximately 9 cm after Pitocin augmentation but was unable to progress beyond 0 station with 9 cm despite 3 hours of adequate contractions. In light of this fact, she was taken the operating suite for a . She had had compression stockings for DVT prophylaxis and Ancef and Zithromax for surgical site infection prophylaxis. She had uncomplicated postoperative course. She did have a postoperative hemoglobin of 9.6 without symptoms. She had a normal progress and was discharged to home and postoperative day #2 status post primary low-transverse . She will be follow-up in the office in 1, 2, and 6 weeks. Prescriptions for oxycodone, Tylenol, Colace, ibuprofen. Home Meds and New Rx's Prescriptions: New ibuprofen 800 mg tablet 800 mg PO Q8H PRNQty: 60 1RF oxycodone 5 mg tablet 5 mg PO Q6H PRNQty: 10 0RF docusate sodium [Colace] 100 mg capsule 100 mg PO BID Qty: 30 1RF No Action Plus Vitamin-Mineral 27 mg iron- 1 mg tablet 1 tab PO DAILY Qty: 90 5RF Discharge Instructions Activity:: Pelvic rest, no heavy lif Equipment/Supplies:: No Equipment Needed Diet:: As Tolerated Discharge Orders Discharge Orders: Discharge Order (Routine); Ordered 07/03/24 Ordered By: Marianela Kraft OB:DS Summary Summary Episiotomy Description: None Laceration Description: None Laceration Extension: N/A Contraception Discussed Contraception Discussed: Yes Contraceptive Plan: Undecided, [place] Gender-Baby A: Male weight: 0.134 oz Status at Discharge Functional status at discharge: independent ambulation Overall status at discharge: patient is back to baseline Mental Status: mental status grossly normal Speech and Movement: speech and movement normal Mood: congruent mood Affect: normal affect Quality:SDOH Health Related Social Needs: Health related social needs details pt does not have any housing concerns! [employer] required me to state a worry in the above question. Health related social needs details: pt does not have any housing concerns! [employer] required me to state a worry in the above question. Exam Physical Exam Vital signs: Temp Pulse Resp BP Pulse Ox 97.7 F 83 17 118/77 100 07/03/24 03:35 07/03/24 03:35 07/03/24 03:35 07/03/24 03:35 07/03/24 03:35 Constitutional Comments: See physical exam from progress note dated 07/03/2024 [facility] All Active Problems (Updated 07/03/24 @ 10:23 by Marianela Kraft DO) Status post primary low transverse section (Acute) Primary section, labor arrest, prolonged rupture, male infant 07/01/2024 (Acute) Medical History Rh negative status during Family history of breast cancer Former tobacco use Family History (System 12/17/23 @ 09:09 by Janee Menchaca) Mother Lipoma Paternal Grandfather Colon cancer Maternal Aunt , 60s Breast cancer Maternal Aunt , 60s Breast cancer Nephew Heart defect Social History (System 12/17/23 @ 09:09 by Janee Menchaca) Smoking/Tobacco Use Status: Former Tobacco Use Smoking risk assessment performed?: Yes Alcohol Intake: never Drug use: Never Substance use type: does not use Housing: apartment Do you feel safe at home: Yes Do you feel safe in your relationship?: Yes History History 1 Para 0 Hx # Term Pregnancies 0 Multiple births 0 Hx # Pregnancies 0 Ectopic pregnancies 0 AB induced 0 Hx Number of Living Children 0 AB spontaneous 0 DS: Data Vitals/I&O Vitals and I&O: Vital Signs Temperature 97.7 F 07/03/24 03:35 Temperature 208.0 F 06/30/24 08:27 Temperature Source Tympanic 06/30/24 03:34 Temperature Source Oral 07/03/24 03:35 Pulse 83 07/03/24 03:35 Pulse 78 06/30/24 08:27 Pulse Rhythm Regular 07/02/24 20:32 Respiratory Rate 17 07/03/24 03:35 Respiratory Depth Normal 07/02/24 08:01 Blood Pressure 118/77 07/03/24 03:35 Blood Pressure 125/58 06/30/24 08:27 Blood Pressure Mean 90 07/03/24 03:35 Pulse Oximetry 100 07/03/24 03:35 Oxygen Delivery Method Room Air 06/30/24 11:33 Oxygen Flow Rate 0 06/30/24 11:33 Pain Level 6 07/02/24 21:27 Comment asleep on right side 06/30/24 17:02 Intake & Output 07/02/24 07/02/24 07/03/24 11:59 23:59 11:59 Output Total 2200 / 2200 Balance -2200 / -2200 Output: Urine 2200 / 2200 Other: Urine Color Yellow Yellow Urine Appearance Clear
== END 2024-07-03 12:26 | disposition home or self-care (01) | DRG 788 ==
PROVIDERS: Advanced Practice Midwife; Obstetrics & Gynecology; Admitting Provider Advanced Practice Midwife; Visit Provider Advanced Practice Midwife
PROC: 10D00Z1 Extraction of Products of Conception, Low, Open Approach (ICD-10-PCS; CPT 59514; principal; 2024-07-01 06:35)
DX: O63.0 Prolonged first stage (of labor); Z37.0 Single live birth; Z3A.40 40 weeks gestation of pregnancy; O26.893 Other specified pregnancy related conditions, third trimester; Z67.91 Unspecified blood type, Rh negative; O67.8 Other intrapartum hemorrhage; O77.0 Labor and delivery complicated by meconium in amniotic fluid
CPT/HCPCS: 59514; 36415; 85027; 85384; 86850; 86900; 86901; 59025; 85025; 85610; 85730; 86870; 88307; J0131; J0456; J0665; J0690; J1100; J1885; J2210; J2270; J2371; J2401; J2405; J2540; J2704; J3010